=== PATIENT | female | born 1965 | race Caucasian/White ===

== ENCOUNTER → 2023-06-29 08:17 | Outpatient (REF) | payer OTHER, SELFPAY | LOC: HWRAD 08:17 | PROVIDERS: ATTENDING PHYSICIAN Emergency Medicine | DX: E55.9 Vitamin D deficiency, unspecified (principal); Z92.21 Personal history of antineoplastic chemotherapy; N95.1 Menopausal and female climacteric states; Z78.0 Asymptomatic menopausal state | CPT/HCPCS: 77080 ==